=== PATIENT | male | born 1985 | race Caucasian/White ===

== ENCOUNTER 2018-12-11 12:10 | Emergency (ER) | payer BC, OTHER ==
[2018-12-11] MEDS ORDERED: Ketorolac INJ* 60 MG/2 ML VIAL IM ONE (12:35)
[2018-12-11 13:28] VITALS: BP 113/79
--- NOTE | 2018-12-11 15:50 | ED ---
Lower Extremity - HPI Summary HPI Summary: Patient is a 33-year-old male who presents to the ED after twisting his left knee and ankle. He states his right knee gave out and his left lower extremity carried his weight with possible hyperextension. Patient endorses pain to the superior portion of the knee as well as the lateral and medial portion of the right ankle. He remains ambulatory, however with discomfort. No swelling noted. Denies any ecchymosis or erythema. Denies any numbness or tingling. Pulses +2 intact bilaterally. He did not take any medications prior to arrival and has not used ice for comfort. - History of Current Complaint Chief Complaint: EDExtremityLower Stated Complaint: LEFT ANKLE/KNEE INJ PER PT Time Seen by Provider: 12/11/18 12:28 Hx Obtained From: Patient Mechanism Of Injury: Twisted Onset of Pain: Hours Onset/Duration: Hours Severity Initially: Moderate Severity Currently: Moderate Pain Intensity: 6 Pain Scale Used: 0-10 Numeric Timing: Constant Location: Is Discrete @ - left knee and ankle Character Of Pain: Aching Associated Signs And Symptoms: Negative: Swelling, Redness, Bruising Aggravating Factor(s): Standing, Ambulation Alleviating Factor(s): Rest Able to Bear Weight: No - Risk Factors Gout Risk Factors: Negative DVT Risk Factors: Negative Septic Arthritis Risk Factor: Negative - Allergies/Home Medications Allergies/Adverse Reactions: Allergies Allergy/AdvReac Type Severity Reaction Status Date / Time Penicillins Allergy Anaphylatic Verified 12/11/18 12:44 Shock PMH/Surg Hx/FS Hx/Imm Hx Previously Healthy: Yes Cardiovascular History: Denies: Hx Pacemaker/ICD Musculoskeletal History: Denies: Hx Scoliosis Sensory History: Denies: Hx Hearing Aid Neurological History: Reports: Hx Headaches - TODAY SINCE HE ARRIVED Psychiatric History: Denies: Hx Panic Disorder - Surgical History Surgery Procedure, Year, and Place: LT WRIST ARTHROSCOPIC, LT KNEE ARTHROSCOPY Infectious Disease History: No Infectious Disease History: Denies: Traveled Outside the [place] in Last 30 Days - Social History Occupation: Employed Full-time Lives: With Family Alcohol Use: Occasionally Hx Substance Use: No Substance Use Type: Reports: None Hx Tobacco Use: No Smoking Status (MU): Never Smoked Tobacco Review of Systems Negative: Fever, Chills, Fatigue, Skin Diaphoresis Negative: Palpitations, Chest Pain Negative: Shortness Of Breath, Cough Genitourinary: Negative Positive: no symptoms reported, see HPI Positive: Arthralgia, Myalgia Negative: Rash, Bruising Neurological: Negative All Other Systems Reviewed And Are Negative: Yes Physical Exam Triage Information Reviewed: Yes Vital Signs On Initial Exam: Initial Vitals Temp Pulse Resp BP Pulse Ox 98.9 F 101 22 144/105 98 12/11/18 12:15 12/11/18 12:15 12/11/18 12:15 12/11/18 12:15 12/11/18 12:15 Vital Signs Reviewed: Yes Appearance: Positive: Well-Appearing, Well-Nourished Skin: Positive: Warm, Skin Color Reflects Adequate Perfusion Head/Face: Positive: Normal Head/Face Inspection Eyes: Positive: EOMI, Conjunctiva Clear Neck: Positive: Supple, No Lymphadenopathy Respiratory/Lung Sounds: Positive: Clear to Auscultation, Breath Sounds Present Cardiovascular: Positive: RRR, Pulses are Symmetrical in both Upper and Lower Extremities Musculoskeletal: Positive: Pain @ - left ankle and knee Neurological: Positive: Speech Normal Psychiatric: Positive: Affect/Mood Appropriate Diagnostics - Vital Signs Vital Signs Temp Pulse Resp BP Pulse Ox 12/11/18 13:27 99.0 F 80 17 113/79 96 12/11/18 12:15 98.9 F 101 22 144/105 98 - Laboratory Lab Statement: Any lab studies that have been ordered have been reviewed, and results considered in the medical decision making process. Lower Extremity Course/Dx - Course Course Of Treatment: During his course treatment, the patient is evaluated for left knee and ankle pain. He states he twisted the left knee and ankle after his right knee gave out and he hyperextended the left knee. On physical examination, there is no ecchymosis, erythema, swelling. No obvious deformities. Flexion and extension intact to both knee and ankle. Patient remains ambulatory. He is given Toradol 30 mg IM. X-rays of the knee and ankle obtained, both which were negative. He is diagnosed with ankle strain and a Dre wrap was applied. He declines crutches. Patient will be discharged home with prescription for Toradol. - Diagnoses Provider Diagnoses: Ankle strain Discharge - Sign-Out/Discharge Documenting (check all that apply): Patient Departure Patient Received Moderate/Deep Sedation with Procedure: No - Discharge Plan Condition: Stable Disposition: HOME Prescriptions: Ketorolac TAB * [Toradol TAB *] 10 mg PO Q6H #16 tab Patient Education Materials: Muscle Strain (ED) Referrals: Latonya CARTER,Ronald Perez [Primary Care Provider] - Additional Instructions: Toradol four times daily as needed for pain and inflammation Use ice today, but ice and heat intermittently tomorrow Keep dre wraps applied for comfort - Billing Disposition and Condition Condition: STABLE Disposition: Home
== END 2018-12-11 13:27 | disposition home or self-care (01) ==
LOC: ED 12:10
DX: S96.912A Strain of unspecified muscle and tendon at ankle and foot level, left foot, initial encounter (principal); X50.9XXA Other and unspecified overexertion or strenuous movements or postures, initial encounter; Z88.0 Allergy status to penicillin
CPT/HCPCS: 96372; 99282; J1885